=== PATIENT | male | born 1950 | race Caucasian/White ===

== ENCOUNTER → 2017-01-21 | Outpatient (CLI) | payer MEDICARE, OTHER ==
[~2017-01-21] MED LIST: LOVA20TA71 PO; OXYB10TA4 PO
[2017-01-21 08:12] LABS: ANION GAP 13 MEQ/L (5-15); BUN/CREATININE RATIO 16 RATIO (6-26); CALCIUM 9.5 MG/DL (8.4-10.2); CHLORIDE 96 MEQ/L (98-107); CO2 - CARBON DIOXIDE 25 MEQ/L (22-30); CREATININE 0.8 MG/DL (0.8-1.5); GLOMERULAR FILTRATION RATE 97; GLUCOSE 104 MG/DL (75-110); POTASSIUM 4.5 MEQ/L (3.6-5); SODIUM 134 MEQ/L (134-144)
--- NOTE | 2017-01-21 08:47 | DI ---
Indication: ITS.REASON: N31.9 NEUROGENIC BLADDER PROCEDURE: US RENAL: Encounter: Subsequent Comparison: Renal ultrasound dated January 15, 2016 Technique: Grayscale and color Doppler sonographic imaging of both kidneys and bladder was performed. FINDINGS: Both kidneys are present with normal cortical thickness and echogenicity. Right hydronephrosis has improved with only a minimal amount remaining. Left hydronephrosis is also improved with a mild amount remaining. No renal masses or obvious stones. The right kidney measures 10.9 cm in length, and the left kidney measures 10.9 cm in length. Bladder shows areas of trabeculation without discrete mass or debris. Prevoid bladder volume is 578.4 mL. Post void residual volume of 44.3 mL. IMPRESSION: Improving hydronephrosis. .
== END ==
LOC: IMA 07:16
PROVIDERS: ATTEND Urology
DX: N40.0 Benign prostatic hyperplasia without lower urinary tract symptoms (principal); N31.9 Neuromuscular dysfunction of bladder, unspecified; N13.30 Unspecified hydronephrosis
CPT/HCPCS: 36415; 80048; 84153

== ENCOUNTER 2017-03-19 09:30 | Day surgery (SDC) | payer MEDICARE, OTHER ==
[~2017-03-19] VITALS: Ht 182.9 cm; Wt 93.1 kg
[~2017-03-19 09:30] MED LIST changes: +LIDOCAINE 1% (10mg/ml) 2ml SDV INJ ONE; +LR 1,000 ML IV SCH
[2017-03-19 09:52] VITALS: Ht 182.9 cm; Wt 93.1 kg
[2017-03-19 09:53] VITALS: BP 145/86; PULSE 101; RESP 15; TEMP 98.2; O2SAT 99
[2017-03-19] MEDS ORDERED: PROPOFOL 500mg 50 ML IV ONE (10:16)
[2017-03-19 11:07] VITALS: BP 107/71; PULSE 100; RESP 16; TEMP 97.3; O2SAT 95
[2017-03-19 11:10] VITALS: BP 111/73; PULSE 92; RESP 15; O2SAT 96
--- NOTE | 2017-03-19 11:19 | ANESPO ---
Post-Op Note Date 03/19/17 Time: 11:19 Status Pt Participated in Evaluation: Pt participated in person Vital Signs Date Time Temp Pulse Resp B/P Pulse Ox O2 Delivery O2 Flow Rate FiO2 03/19/17 11:07 97.3 100 16 107/71 95 Room Air Respiratory Function: Airway patent Cardiovascular Function: Regular pulse Mental Status: Alert/oriented Pain Level Intensity: 0 Hydration: Taking po fluids Complications during Recovery None apparent Follow-Up Instructions Instructions Per Surgeon MELL MARCANO CRNA March 19, 2017 11:19
--- NOTE | 2017-03-19 11:19 | ANESPREOP ---
Anesthesia Record Date and Time DATE: 03/19/17 TIME: 1031 Proposed Surgical Procedure COLONOSCOPY Allergies: Coded Allergies: No Known Drug Allergies (Verified Allergy, Unknown, 03/19/17) Ht/Wt/BMI Height: 6 ' 0.00 " Weight: 93.100 kg BMI: 27.8 kg/m2 Vital Signs Date Time Temp Pulse Resp B/P Pulse Ox O2 Delivery O2 Flow Rate FiO2 03/19/17 11:07 97.3 100 16 107/71 95 Room Air Medications Inpatient Medications Current Medications Medications (Trade) Dose Ordered Sig/Max Start Time Stop Time Status Last Admin Dose Admin Lactated Ringer's (Lactated Ringers) 1,000 ml @ 50 mls/hr Q20H 03/19/17 07:00 03/19/17 10:17 50 MLS/HR Lovastatin (Lovastatin) 20 Mg Tablet, 20 MG PO DAILY, (Reported) Last Taken: on 03/18/171999 Oxybutynin Chloride (Ditropan Xl) 10 Mg Tab.er.24, 1 TAB PO DAILY, (Reported) Last Taken: on 03/18/171999 Currently on Beta Samir: No Medical/Surgical History Anesthesia PMH: Reports: Anesthesia Reactions (N, NO AIRWAY ISSUES), Arthritis , Cancer (COLON), Denies: *Angina, *Diabetes, *Dyspnea, *Hypertension, *ND, Asthma, CHF, COPD, CVA/Stroke/TIA, Clotting Problems, Deep Vein Thrombosis, Glaucoma, Headaches, Hepatitis, Hiatal Hernia, Malignant Hyperthermia, Pneumonia , Reflux, Renal Disease, Rheumatic Fever, Seizures, Sleep Apnea, Thyroid Disease , Tuberculosis Smoking Status: Former smoker Use Chewing Tobacco?: No Second Hand Exposure: No Substance Use Type: does not use Alcohol Intake: none Past Surgical History Orthopedic Surgeries: Yes - open reduction & internal fixation Cesilia oliveirarotator cuff repair 2010 Abdominal Surgeries: Yes - bowel resection Genitourinary Surgeries: No Cardiac Surgeries: No Endocrine Surgeries: No Reproductive Surgeries: Yes - vasectomy Neurological Surgeries: No Ear Surgeries: No Nose Surgeries: No Throat Surgeries: No Other Surgeries: Yes - COLONOSCOPY Anesthesia Adverse Reactions: FOUND nausea and vomiting Pertinent Findings EKG Rhythm: Sinus Rhythm Physical Exam Respiratory: Lungs clear Cardiovascular: FOUND Regular rate, rhythm Airway Assessment Mallampati Score: II TMD: 3 Fingerbreadths Neck Extension: Good Overall Assessment: No Airway Concerns ASA: 3 Plan Anesthesia Plan: TIVA Discussion Discussed risks/options/alternatives of anesthesia and questions answered. Patient consents. Nursing pain assessment noted. Attestation Statement Prior to the delivery of any anesthetic medication, I examined the patient, developed the plan, obtained the patient's consent and discussed the risk and benefits of the procedure with the patient/guardian. MELL MARCANO CRNA March 19, 2017 11:19
[2017-03-19 11:25] VITALS: BP 107/71; PULSE 100; RESP 16; O2SAT 95
[2017-03-19 11:40] VITALS: BP 130/88; PULSE 80; RESP 18; O2SAT 97
--- NOTE | 2017-03-19 11:49 | GSPOSTPROC ---
Immediate Operative Note DATE: 03/19/17 TIME: 11:48 Postop Diagnosis: Poor bowel prep Surgical Procedure: Other (Flexible sigmoidoscopy) Surgeon: Yovany ASA: 3 JANEEN LEVI MD March 19, 2017 11:49
[2017-03-19 11:55] VITALS: BP 129/88; PULSE 78; RESP 16; O2SAT 97
--- NOTE | 2017-03-19 13:12 | OPNOTEF ---
DATE OF OPERATION 03/19/2017 PREOPERATIVE DIAGNOSES 1. Personal history of rectal cancer. 2. Status post low anterior colon resection on 03/11/1994. 3. Personal history of adenomatous colon polyps. 4. Possible incomplete removal of very large sessile tubular adenoma colon polyp removed in piecemeal fashion at total colonoscopy on 12/15/2016. 5. Chronic constipation. POSTOPERATIVE DIAGNOSES 1. Personal history of rectal cancer. 2. Status post low anterior colon resection on 03/11/1994. 3. Personal history of adenomatous colon polyps. 4. Possible incomplete removal of very large sessile tubular adenoma colon polyp removed in piecemeal fashion at total colonoscopy on 12/15/2016. 5. Chronic constipation. 6. Very poor bowel prep at attempted colonoscopy today. OPERATION Flexible sigmoidoscopy (attempted colonoscopy). SURGEON Dr. Yovany BARRON ASA CLASS 3 FINDINGS The patient did have a very poor bowel prep at attempted colonoscopy today. There was solid stool throughout the rectum and throughout the colon all the way up to a level at least 30 cm proximal to the anal verge. This was a large amount of solid stool and also some liquid stool. DESCRIPTION OF OPERATION The patient was brought to the endoscopy room. The patient was placed on a cart in the endoscopy room. The patient was placed in left lateral recumbent position on a cart in the endoscopy room. The patient was premedicated with intravenous sedation medication administered by the nurse court clerk. The Olympus colonoscope was used. The intention at this time was to perform total colonoscopy on the patient. The colonoscope was introduced into the rectum. There was a large amount of solid stool and liquid stool in the rectum. Irrigation was performed. The colonoscope was advanced up through the colon around solid stool and through solid stool slowly over a long period of time up to a level 30 cm proximal to the anal verge. A very large amount of irrigation was performed at this time. Irrigation fluid then flowed out of the patient around the colonoscope from the rectum. Even after all this large amount of irrigation fluid had been instilled into the colon, there were still large amounts of solid stool throughout the rectum and throughout the colon all the way up to a level 30 cm proximal to the anal verge. The amount of solid stool was not becoming less as the colonoscope was advanced further up through the colon. After the colonoscope had been advanced up to a level about 30 cm proximal to the anal verge, a decision was made to stop the procedure due to the very poor bowel prep. The mucosa at the rectum and distal sigmoid colon could not even be examined after all this time because of the large amount of solid stool which still remained at this area. The colonoscope was withdrawn out through the colon and rectum and removed from the patient. Findings throughout the procedure were as described above. The patient did continue to receive intravenous sedation medication administered by the nurse court clerk throughout the operation. The patient did tolerate the operation well. MARIAM
== END 2017-03-19 12:12 | disposition home or self-care (01) ==
LOC: SCU 09:30
PROVIDERS: ATTEND Surgery
DX: K59.09 Other constipation (principal); Z86.010 Personal history of colon polyps; Z53.8 Procedure and treatment not carried out for other reasons; Z85.048 Personal history of other malignant neoplasm of rectum, rectosigmoid junction, and anus; Z90.49 Acquired absence of other specified parts of digestive tract; E78.5 Hyperlipidemia, unspecified
CPT/HCPCS: 45378; J7120